=== PATIENT | male | born 1990 | race Caucasian/White ===

== ENCOUNTER 2019-01-24 18:00 | Emergency (ER) | payer SELFPAY ==
[~2019-01-24] VITALS: Ht 170.2 cm; Wt 75.0 kg
[2019-01-24] MEDS ORDERED: ELVI1TAB3 PO (18:17)
[2019-01-24] MEDS ORDERED: POVIDONE-IODINE 10% 15 ML SOLUTION UD TP ONE (20:45)
[2019-01-24] MEDS ORDERED: LIDOCAINE 1% 10 ML VIAL INJ ONE (20:45)
[2019-01-24 21:43] VITALS: BP 107/77
[2019-01-24] MEDS ORDERED: BACITRACIN 0.9 GM PACKET OINTMENT TP ONE (21:45)
== END 2019-01-24 22:37 | disposition home or self-care (01) ==
LOC: EMS 18:02
DX: S51.812A Laceration without foreign body of left forearm, initial encounter (principal); W25.XXXA Contact with sharp glass, initial encounter; Y93.89 Activity, other specified; Y92.89 Other specified places as the place of occurrence of the external cause; Y99.8 Other external cause status
CPT/HCPCS: 12002; 73110; 99283; J3490

== ENCOUNTER 2019-01-31 18:40 | Emergency (ER) | payer SELFPAY ==
[~2019-01-31] VITALS: Ht 172.7 cm; Wt 72.7 kg
[~2019-01-31 18:40] MED LIST: ELVI1TAB3 PO
[2019-01-31 18:43] VITALS: BP 124/83
== END 2019-01-31 20:00 | disposition left against medical advice (07) ==
LOC: EMS 18:41
DX: Z53.21 Procedure and treatment not carried out due to patient leaving prior to being seen by health care provider (principal)